=== PATIENT | female | born 1960 | race Caucasian/White ===

== ENCOUNTER 2021-03-05 14:52 | Emergency (ER) | payer OTHER, SELFPAY ==
--- NOTE | ~2021-03-05 | XR_ITS ---
EXAMINATION: XR knee RT 3V EXAM DATE: 03/05/2021 15:29 INDICATION: Right knee injury on Thursday, increased pain with bending. TECHNIQUE: Three projections of the right knee. There is no prior study for comparison. FINDINGS: No evidence osteochondral defect or joint body in the right knee joint. There are no acut e fractures or dislocations identified. There is no subcutaneous gas. There is moderate quantity of joint fluid without suspicion of lipohemarthrosis There are no radiopaque foreign bodies. IMPRESSION: 1. Right knee exam without acute osseous findings. 2. Moderate joint effusion. Reviewed, dictated and finalized at location A.
[2021-03-05 15:04] VITALS: BP 121/77; PULSE 100; RESP 16; TEMP 37; O2SAT 99
--- NOTE | 2021-03-05 17:32 | ED.GENADULT ---
HPI - General Adult General Chief complaint: Extremity Injury, Lower <Maikel Smyth PA-C - Last Filed: 03/05/21 17:36> Stated complaint: right knee injury <Maikel Smyth PA-C - Last Filed: 03/05/21 17:36> Time Seen by Provider: 03/05/21 16:04 <Maikel Smyth PA-C - Last Filed: 03/05/21 17:36> Source: patient <Maikel Smyth PA-C - Last Filed: 03/05/21 17:36> Mode of arrival: ambulatory <JONNIE Trujillo Last Filed: 03/05/21 17:36> Limitations: no limitations <JONNIE Trujillo Last Filed: 03/05/21 17:36> History of Present Illness HPI narrative: Patient presents with chief complaint of swelling and decreased flexion to the right knee. Patient reports swelling to the lateral upper quadrant of the right knee. Patient reports that she was going down the steps when she felt a popping sensation and then her knee gave out. Patient states since she has noticed increased swelling and decreased ability for flexion when ambulating. Patient denies any fevers, chills, nausea, vomiting, erythema to the joint or heat. Patient denies prior knee fracture. <Maikel Smyth PA-C - Last Filed: 03/05/21 17:36> Related Data Allergies/adverse reactions: Allergies Allergy/AdvReac Type Severity Reaction Status Date / Time No Known Allergies Allergy Verified 03/05/21 16:03 <Maikel Smyth PA-C - Last Filed: 03/05/21 17:36> Review of Systems Review of Systems: CONSTITUTIONAL: Denies fever, chills, or sweats. EYES: Denies visual changes, redness, or discharge. ENT: Denies rhinorrhea, congestion, sore throat, or otalgia. CARDIOVASCULAR: Denies chest pain, palpitations, or edema. RESPIRATORY: Denies cough or dyspnea. GASTROINTESTINAL: Denies abdominal pain, nausea, vomiting, or diarrhea. GENITOURINARY: Denies dysuria or hematuria. SKIN: Denies rash or itching. MUSCULOSKELETAL: Reports right knee pain Denies back pain, joint pain, or myalgia. NEUROLOGIC: denies headache, numbness, dizziness, or weakness. PSYCHIATRIC: Denies anxiety or depression. <Maikel Smyth PA-C - Last Filed: 03/05/21 17:36> Exam Narrative: GENERAL: Well-appearing, well-nourished, and in no acute distress. HEAD: Normocephalic, atraumatic. EYES: PERRLA and EOMI. CHEST: Clear to auscultation. No respiratory distress. No wheezes rales or rhonchi HEART: Regular rate and rhythm. No murmur heard. Normal peripheral pulses. EXTREMITIES: Swelling to the right knee. Decreased flexion. Patient ambulates with stiff gate without knee flexion with steps. Normal range of motion. No erythema or other sign of septic joint. SKIN: Warm, dry, no rash. NEURO: No focal deficits. Alert and oriented x3. PSYCH: Normal mood and affect. <Maikel Smyth PA-C - Last Filed: 03/05/21 17:36> Course Vital Signs Vital signs: Vital Signs Temperature 37.0 C 03/05/21 15:04 Pulse Rate 100 03/05/21 15:04 Respiratory Rate 16 03/05/21 15:04 Blood Pressure 121/77 03/05/21 15:04 Pulse Oximetry 99 03/05/21 15:04 Temperature 37.0 C 03/05/21 15:04 Pulse Rate 100 03/05/21 15:04 Respiratory Rate 16 03/05/21 15:04 Blood Pressure 121/77 03/05/21 15:04 Pulse Oximetry 99 03/05/21 15:04 <JONNIE Trujillo Last Filed: 03/05/21 17:36> Medical Decision Making MDM Narrative Medical decision making narrative: Patient likely has a tendon or ligamentous injury. Discussed with patient the need to follow-up primary care product test specialist for further evaluation and management. Discussed that she will likely receive physical therapy and/or MRI for evaluation of tendons and ligaments. Discussed RICE protocol and the need to return to the emergency department if she develops any signs of infection in the joint. <JONNIE Trujillo Last Filed: 03/05/21 17:36> Vital Signs Vital Signs: Vital Signs Temperature 37.0 C 03/05/21 15:04 Pulse Rate 100 10/12/21 15:04 Respiratory Rate 16
== END 2021-03-05 17:50 | disposition home or self-care (01) ==
PROVIDERS: Emergency Provider Emergency Medicine
DX: M25.461 Effusion, right knee (principal)
CPT/HCPCS: 73562; 99283